=== PATIENT | female | born 1945 | race Caucasian/White ===

== ENCOUNTER → 2018-01-24 | Outpatient (CLI) | payer MEDICARE, BC | LOC: RAD 07:27 | DX: M17.0 Bilateral primary osteoarthritis of knee (principal); S83.002A Unspecified subluxation of left patella, initial encounter ==

== ENCOUNTER → 2019-01-09 | Outpatient (CLI) | payer MEDICARE, BC | LOC: RAD 08:22 | DX: M17.11 Unilateral primary osteoarthritis, right knee (principal) ==

== ENCOUNTER 2019-06-27 09:00 | Outpatient (RCR) | payer MEDICARE, BC | END 2019-06-27 09:30 | disposition still patient (30) | LOC: PT 09:00 | DX: M17.11 Unilateral primary osteoarthritis, right knee (principal) ==

== ENCOUNTER → 2019-12-11 | Outpatient (CLI) | payer MEDICARE, BC | LOC: RAD 09:13 | DX: M25.561 Pain in right knee (principal); M17.11 Unilateral primary osteoarthritis, right knee ==

== ENCOUNTER → 2020-12-23 | Outpatient (CLI) | payer MEDICARE, BC | LOC: MAMMO 09:02 | DX: Z12.31 Encounter for screening mammogram for malignant neoplasm of breast (principal); Z98.82 Breast implant status ==

== ENCOUNTER → 2022-01-19 | Outpatient (CLI) | payer MEDICARE, BC | LOC: MAMMO 08:45 | DX: Z12.31 Encounter for screening mammogram for malignant neoplasm of breast (principal) ==

== ENCOUNTER → 2022-02-22 | Outpatient (CLI) | payer MEDICARE, BC ==
[~2022-02-22] VITALS: Ht 177.8 cm; Wt 100.0 kg
[~2022-02-22] MED LIST: CALCIUM500 M1 PO; CARDIZEM120 M1 PO; ELIQUIS2.5 MG PO; MODURETIC 5/501 TA1 PO; MULTI FOR HER1 EAC2 PO; OSTEO-BI-FLEX 21 TAB PO; VITAMIN D3125 MC1 PO
[2022-02-22 09:50] VITALS: BP 150/89
== END ==
LOC: AMSURD 09:28
DX: M81.0 Age-related osteoporosis without current pathological fracture (principal)
CPT/HCPCS: J3111

== ENCOUNTER → 2022-04-19 | Outpatient (CLI) | payer MEDICARE, BC ==
[~2022-04-19] VITALS: Ht 177.8 cm; Wt 100.0 kg
[2022-04-19 10:11] VITALS: BP 136/59
== END ==
LOC: AMSURD 09:28
DX: M81.0 Age-related osteoporosis without current pathological fracture (principal)
CPT/HCPCS: J3111

== ENCOUNTER → 2022-06-14 | Outpatient (CLI) | payer MEDICARE, BC ==
[~2022-06-14] VITALS: Ht 177.8 cm; Wt 100.0 kg
[2022-06-14 09:48] VITALS: BP 135/90
== END ==
LOC: AMSURD 09:08
DX: M81.0 Age-related osteoporosis without current pathological fracture (principal)
CPT/HCPCS: J3111

== ENCOUNTER → 2022-07-12 | Outpatient (CLI) | payer MEDICARE, BC ==
[~2022-07-12] VITALS: Ht 177.8 cm; Wt 100.0 kg
[2022-07-12 09:49] VITALS: BP 130/67
== END ==
LOC: AMSURD 09:27
DX: M81.0 Age-related osteoporosis without current pathological fracture (principal)
CPT/HCPCS: J3111

== ENCOUNTER → 2022-08-09 | Outpatient (CLI) | payer MEDICARE, BC ==
[~2022-08-09] VITALS: Ht 177.8 cm; Wt 100.0 kg
[2022-08-09 10:05] VITALS: BP 128/73
== END ==
LOC: AMSURD 08:01
DX: M81.0 Age-related osteoporosis without current pathological fracture (principal)
CPT/HCPCS: J3111

== ENCOUNTER → 2023-01-18 | Outpatient (CLI) | payer MEDICARE, BC | LOC: RAD 07:30 | DX: M19.012 Primary osteoarthritis, left shoulder (principal); M54.2 Cervicalgia; M25.532 Pain in left wrist ==

== ENCOUNTER → 2023-07-19 | Outpatient (CLI) | payer MEDICARE, BC | LOC: RAD 08:14 | DX: N30.20 Other chronic cystitis without hematuria (principal) ==

== ENCOUNTER → 2023-12-21 | Outpatient (CLI) | payer MEDICARE, BC ==
[~2023-12-21] VITALS: Ht 177.8 cm; Wt 100.0 kg
[~2023-12-21] MED LIST changes: +AZO D-MANNOSE500 MG PO; +Denosumab 60 MG/ML SYRINGE SQ ONE
[2023-12-21 08:54] VITALS: BP 130/70
== END ==
LOC: AMSURD 08:37
DX: M81.0 Age-related osteoporosis without current pathological fracture (principal)
CPT/HCPCS: J0897

== ENCOUNTER → 2024-02-01 | Outpatient (CLI) | payer MEDICARE, BC ==
[~2024-02-01] MED LIST changes: -Denosumab 60 MG/ML SYRINGE SQ ONE
== END ==
LOC: MAMMO 08:30
DX: Z12.31 Encounter for screening mammogram for malignant neoplasm of breast (principal)

== ENCOUNTER → 2024-06-27 | Outpatient (CLI) | payer MEDICARE, BC ==
[~2024-06-27] VITALS: Ht 177.8 cm; Wt 100.0 kg
[~2024-06-27] MED LIST changes: +CRANBERRY200 MG PO; +Denosumab 60 MG/ML SYRINGE SQ ONE
[2024-06-27 12:58] VITALS: BP 141/68
== END ==
LOC: AMSURD 11:50
DX: M81.0 Age-related osteoporosis without current pathological fracture (principal)
CPT/HCPCS: J0897